=== PATIENT | male | born 1985 | race Caucasian/White ===

== ENCOUNTER 2019-08-08 00:23 | Emergency (ER) | payer SELFPAY ==
--- NOTE | 2019-08-08 00:42 | ER Document Report ---
ED Medical Screen (RME) - General Stated Complaint: PSYCH EVAL Time Seen by Provider: 08/08/19 00:40 Mode of Arrival: Ambulatory Information source: Patient Notes: Patient presents reporting that he is hearing voices. Patient states symptoms voices tell him to hurt himself although he is uncertain if these instructions are from people he hears or from himself. Patient does state he has a history of bipolar disorder and schizophrenia although he does not feel that these diagnoses are accurate. Patient states he has been hospitalized on inpatient basis for similar problems in the past. Patient states he has been off any medications for the past year. Patient also states that he is worried that he may have AIDS and cancer. I have greeted and performed a rapid initial assessment of this patient. A comprehensive ED assessment and evaluation of the patient, analysis of test results and completion of the medical decision making process will be conducted by additional ED providers. Physical Exam - Vital signs Vitals: Temp Pulse Resp BP Pulse Ox 98.3 F 100 20 128/78 H 99 08/08/19 00:35 08/08/19 00:35 08/08/19 00:35 08/08/19 00:35 08/08/19 00:35 - Psychological Associated symptoms: Auditory hallucinations, Paranoid Course - Vital Signs Vital signs: Temp Pulse Resp BP Pulse Ox 98.3 F 100 20 128/78 H 99 08/08/19 00:35 08/08/19 00:35 08/08/19 00:35 08/08/19 00:35 08/08/19 00:35
[2019-08-08 01:05] LABS: ABSOLUTE LYMPHOCYTES (AUTO) 1.7 10^3/uL (0.5-4.7); ABSOLUTE MONOCYTES (AUTO) 0.5 10^3/uL (0.1-1.4); ABSOLUTE NEUT (AUTO) 5.4 10^3/uL (1.7-8.2); BASOPHILS % (AUTO) 0.4 % (0-2); HEMOGLOBIN 14.7 g/dL (13.5-17.0); LYMPHOCYTES % (AUTO) 22.5 % (13-45); MEAN CORPUSCULAR HEMOGLOBIN 33.6 pg (27.0-33.4); MEAN CORPUSCULAR HGB CONC 35.1 g/dL (32.0-36.0); MEAN CORPUSCULAR VOLUME 96 fl (80-97); MONOCYTES % (AUTO) 6.2 % (3-13); PLATELET COUNT 292 10^3/uL (150-450); RED BLOOD COUNT 4.38 10^6/uL (4.35-5.55); RED CELL DISTRIBUTION WIDTH 13.4 % (11.5-14.0); SEGMENTED NEUTROPHILS % (AUTO) 70.9 % (42-78); TOTAL CELLS COUNTED % (AUTO) 100 %; WHITE BLOOD COUNT 7.7 10^3/uL (4.0-10.5)
[2019-08-08 01:18] LABS: ALBUMIN 4.7 g/dL (3.5-5.0); ALKALINE PHOSPHATASE 82 U/L (38-126); ANION GAP 11 (5-19); ASPARTATE AMINO TRANSFERASE 16 U/L (17-59); BILIRUBIN,TOTAL 0.9 mg/dL (0.2-1.3); BLOOD UREA NITROGEN 7 mg/dL (7-20); CALCIUM 9.9 mg/dL (8.4-10.2); CARBON DIOXIDE 24 mmol/L (22-30); CHLORIDE 102 mmol/L (98-107); GLUCOSE 98 mg/dL (75-110); TOTAL PROTEIN 7.9 g/dL (6.3-8.2)
[2019-08-08 01:21] LABS: ACETAMINOPHEN < 10 ug/mL (10-30); ALCOHOL < 10 mg/dL (NONE DETECTED); SALICYLATE < 1.0 mg/dL (2.0-20.0)
--- NOTE | 2019-08-08 01:36 | ER Document Report ---
ED Psych Disorder / Suicide - General Chief Complaint: Psych Problem Stated Complaint: PSYCH EVAL Time Seen by Provider: 08/08/19 00:40 Mode of Arrival: Ambulatory Notes: Patient is a 34-year-old male that comes emergency department for chief complaint of hearing voices that are telling him to hurt himself. He states that he is hearing voices and he is a difficult time differentiating if these voices are his own thoughts or if this is from the people that he hears. He states that he does have a history of schizophrenia which he calls into question. He states that he is out of his medications and he has not been on them for some time. He states he has been in psychiatric hospitalization previously. Patient is unsure of the medications that he was supposed to be on. Patient also states that he has been worried that he might have some sort of terrible disease or infection but he has been tested for this previously and they were negative. Patient states he is just frustrated and he feels like he needs to "get right". He states he came here walking because he is currently homeless. TRAVEL OUTSIDE OF THE [place] IN LAST 30 DAYS: No - Related Data Allergies/Adverse Reactions: bee venom protein (honey bee) Allergy (Verified 08/08/19 00:45) haloperidol [From Haldol] Allergy (Verified 08/08/19 00:41) Past Medical History - General Information source: Patient - Social History Smoking Status: Current Every Day Smoker Chew tobacco use (# tins/day): No Frequency of alcohol use: Heavy Drug Abuse: None Lives with: Alone Family History: Reviewed & Not Pertinent Patient has suicidal ideation: Yes - but does report voices telling him to harm himself Patient has homicidal ideation: Yes - states, "Not thoughts that are my own." Psychiatric Medical History: Reports: Hx Schizophrenia Surgical Hx: Negative - Immunizations Immunizations up to date: Yes Hx Diphtheria, Pertussis, Tetanus Vaccination: Yes Review of Systems - Review of Systems Constitutional: No symptoms reported EENT: No symptoms reported Cardiovascular: No symptoms reported Respiratory: No symptoms reported Gastrointestinal: No symptoms reported Genitourinary: No symptoms reported Male Genitourinary: No symptoms reported Musculoskeletal: No symptoms reported Skin: No symptoms reported Hematologic/Lymphatic: No symptoms reported Neurological/Psychological: See HPI Physical Exam - Vital signs Vitals: Temp Pulse Resp BP Pulse Ox 98.3 F 100 20 128/78 H 99 08/08/19 00:35 08/08/19 00:35 08/08/19 00:35 08/08/19 00:35 08/08/19 00:35 - Notes Notes: GENERAL: Alert, does not appear to be in distress HEAD: Normocephalic, atraumatic. EYES: Pupils equal, round, and reactive to light. Extraocular movements intact. ENT: Oral mucosa moist, tongue midline. Oropharynx unremarkable. Airway patent. LUNGS: Clear to auscultation bilaterally, no wheezes, rales, or rhonchi. No respiratory distress. HEART: Regular rate and rhythm. No murmur ABDOMEN: Soft, non-tender. Non-distended. Bowel sounds present in all 4 quadrants. GENITOURINARY: Deferred EXTREMITIES: Moves all 4 extremities spontaneously. No edema, normal radial and dorsalis pedis pulses bilaterally. No cyanosis. BACK: no cervical, thoracic, lumbar midline tenderness. No saddle anesthesia, normal distal neurovascular exam. Moves all extremities in full range of motion. NEUROLOGICAL: Alert and oriented x3. Normal speech. Cranial nerves II through XII grossly intact. PSYCH: Constantly frowning, hanging head down, makes poor eye contact, very slow speech, has difficulty engaging in conversation. Tangential conversation. SKIN: Warm, dry, normal turgor. No rashes or lesions noted. Course - Re-evaluation Re-evalutation: Patient does not appear to be in distress. Vital signs unremarkable. CBC, chemistry, urinalysis, drug screening, EKG unremarkable. Patient is voicing that he is having auditory hallucinations and reports he is either feeling suicidal or the voices are telling him to be suicidal. He is reportedly schizophrenic and off his medications, and checking the system this appears to be Risperdal and Vistaril, he was offered this and initially declined. He states he feels okay and he just wants to speak "to someone about my problems". Patient placed on IVC paperwork because of auditory loose Nations and suicidal ideations, this was signed by Dr. Villeda. Patient is medically cleared pending mental health team evaluation in the morning. Patient does state agreement with plan. - Vital Signs Vital signs: Temp Pulse Resp BP Pulse Ox 97.9 F 85 20 126/83 H 99 08/08/19 01:43 08/08/19 01:43 08/08/19 01:43 08/08/19 01:43 08/08/19 01:43 - Laboratory Result Diagrams: 08/08/19 00:54 08/08/19 00:54 Laboratory results interpreted by me: 08/08/19 08/08/19 08/08/19 00:54 00:54 01:35 MCH 33.6 H Sodium 136.8 L AST 16 L Urine Ketones TRACE H Urine Blood SMALL H Salicylates < 1.0 L Acetaminophen < 10 L - EKG Interpretation by Me Additional EKG results interpreted by me: EKG shows sinus rhythm at a rate of 81, normal axis, there is some J-point elevation in the anterior leads but no concerning ST elevations or T wave inversions. QTC of 409. Discharge - Discharge Clinical Impression: Auditory hallucinations, Suicidal ideations Schizophrenia Qualifiers: Schizophrenia type: unspecified Qualified Code(s): F20.9 - Schizophrenia, unspecified Condition: Stable Disposition: PSYCH HOSP/UNIT
[2019-08-08 01:58] LABS: APPEARANCE,URINE CLEAR; BILIRUBIN,URINE NEGATIVE (NEGATIVE); COLOR,URINE YELLOW; GLUCOSE, URINE NEGATIVE (NEGATIVE); KETONES,URINE TRACE mg/dL (NEGATIVE); LEUKOCYTE ESTERASE,URINE NEGATIVE (NEGATIVE); NITRITE,URINE NEGATIVE (NEGATIVE); PROTEIN,URINE NEGATIVE (NEGATIVE); URINE SPECIFIC GRAVITY 1.012; UROBILINOGEN,URINE NEGATIVE mg/dL (<2.0)
[2019-08-08 02:10] LABS: URINE AMPHETAMINES SCREEN NEGATIVE; URINE BARBITURATES SCREEN NEGATIVE; URINE BENZODIAZEPINES SCREEN NEGATIVE; URINE COCAINE SCREEN NEGATIVE; URINE MARIJUANA (THC) SCREEN NEGATIVE; URINE METHADONE SCREEN NEGATIVE; URINE PHENCYCLIDINE SCREEN NEGATIVE
[2019-08-08] MEDS ORDERED: RISPERIDONE 1 MG TABLET PO ONE (03:41)
[2019-08-08] MEDS ORDERED: HYDROXYZINE PAMOATE 50 MG CAPSULE PO ONE (03:41)
--- NOTE | 2019-08-08 07:59 | EKG REPORT ---
SEVERITY:- ABNORMAL ECG - SINUS RHYTHM BIATRIAL ABNORMALITIES LEFT VENTRICULAR HYPERTROPHY ST ELEV, PROBABLE NORMAL EARLY REPOL PATTERN : Confirmed by: Suzie Oh MD 08-Aug-2019 07:59:17
[2019-08-08] MEDS ORDERED: OLANZAPINE 2.5 MG TABLET PO ONE (13:45)
--- NOTE | 2019-08-08 13:48 | ER Document Report ---
Doctor's Note Notes: 08/08/19 13:46 Progress note: Patient reevaluated at this time today. He is in no acute distress. He states that he is feeling some better and ready for discharge. He denies any further suicidal or homicidal ideations. Denies any delusions. He states that he still hearing some voices but this is baseline for him. He reports the voices are not telling him to harm himself or anyone else or do any bad actions. Psychiatry is aware of this and wishes to proceed with IVC rescinded. Heart regular rate and rhythm, lungs clear to auscultation bilaterally. Patient has no medical complaints. His vital signs are within normal limits. He was previously medically cleared. He will be started on Zyprexa 2.5 mg p.o. twice daily per psychiatry recommendation. He was given outpatient list of psychiatric providers that he will follow-up with by psychiatry. I counseled him regarding the importance of outpatient follow-up and advised that he return here any ER immediately with any new, persistent or worsening symptoms. He verbalized understood and agreed. Discussed with Dr. Breen who agrees with plan of care.
[2019-08-08 14:18] VITALS: BP 106/76
--- NOTE | 2019-08-09 06:35 | PSYCHOLOGICAL NOTE ---
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 Patient was administered Risperdal 1MG and Vistaril 50MG at 0451 but initially would not take it. He admitted he was homeless. He reported the psychosis and SI increased the past 5 days and stated "I have a lot going on." With further questioning he stated "there are thoughts being put in my head, my thoughts are being read, and I feel like it's causing people to get hurt." He said he could not recall the last medication regimen he was on. He admitted to past use of Cannabis and occasionally Cocaine but being clean. He reported he drinks alcohol occasionally. He noted family MH history being father had Schizophrenia. He admitted to previous hospitalizations, said the last one was 1-2 years ago here in [place]. Patient denied current SI/HI, had fair eye contact, engaged and answered questions when addressed, thoughts seemed linear and organized, mood was euthymic with congruent affect and he did not appear to be responding to internal stimuli given appropriate interactions. He did become antsy and he told this clinician he wanted to have a cigarette. He was able to be redirected several times to wait so he could be discharged appropriately/given belongs and prescriptions. Diagnosis: Psychosis Suicidal Ideation Off prescribed medication for a year Homelessness Medication recommendations made by the psychiatric medication provider. Dr. Rajan MD., includes: Provide prescription for Zyprexa 2.5MG twice a day for psychosis/mood stabilization/impulse control/attention Impression/Plan: Patient is cleared from acute psychiatric services. Recommendation to rescind 24 Hour Petition for Evaluation. Patient denied current SI/HI, had fair eye contact, engaged and answered questions when addressed, thoughts seemed linear and organized, mood was euthymic with congruent affect and he did not appear to be responding to internal stimuli given appropriate interactions. He did become antsy and he told this clinician he wanted to have a cigarette. He was able to be redirected several times to wait so he could be discharged appropriately/given belongs and prescriptions. Provided patient with the outpatient MH resource list, highlighted both [facility] and [facility] for crisis/talk therapy/linkage, highlighted and documented walk in times for both [facility] and [facility] and listed medication/what it is meant to treat/[facility] being the cheapest place to purchase medication. Consulted with Dr. Hauser regarding the management and care of patient. ED Physician in agreement with recommendations.
== END 2019-08-08 14:18 | disposition home or self-care (01) ==
LOC: ER 00:23
DX: R45.851 Suicidal ideations (principal); F20.9 Schizophrenia, unspecified; F31.9 Bipolar disorder, unspecified
CPT/HCPCS: 93005; 99285; 36415; 80307 ×4; 85025; 80053; 81001; 93010; J3490

== ENCOUNTER 2019-08-09 12:44 | Emergency (ER) | payer SELFPAY ==
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
[2019-08-09 14:57] LABS: ABSOLUTE LYMPHOCYTES (AUTO) 1.8 10^3/uL (0.5-4.7); ABSOLUTE MONOCYTES (AUTO) 0.5 10^3/uL (0.1-1.4); ABSOLUTE NEUT (AUTO) 5.2 10^3/uL (1.7-8.2); BASOPHILS % (AUTO) 0.3 % (0-2); HEMATOCRIT 42.4 % (37.9-51.0); LYMPHOCYTES % (AUTO) 23.6 % (13-45); MEAN CORPUSCULAR HGB CONC 35.3 g/dL (32.0-36.0); MEAN CORPUSCULAR VOLUME 96 fl (80-97); MONOCYTES % (AUTO) 7.2 % (3-13); PLATELET COUNT 292 10^3/uL (150-450); RED CELL DISTRIBUTION WIDTH 13.7 % (11.5-14.0); SEGMENTED NEUTROPHILS % (AUTO) 68.9 % (42-78); TOTAL CELLS COUNTED % (AUTO) 100 %; WHITE BLOOD COUNT 7.5 10^3/uL (4.0-10.5)
[2019-08-09 15:16] LABS: ALBUMIN 4.9 g/dL (3.5-5.0); ALKALINE PHOSPHATASE 92 U/L (38-126); ANION GAP 12 (5-19); ASPARTATE AMINO TRANSFERASE 18 U/L (17-59); BILIRUBIN,DIRECT 0.2 mg/dL (0.0-0.4); BILIRUBIN,TOTAL 0.8 mg/dL (0.2-1.3); BLOOD UREA NITROGEN 8 mg/dL (7-20); CALCIUM 9.9 mg/dL (8.4-10.2); CARBON DIOXIDE 25 mmol/L (22-30); CHLORIDE 102 mmol/L (98-107); GLUCOSE 96 mg/dL (75-110); POTASSIUM 4.6 mmol/L (3.6-5.0); TOTAL PROTEIN 8.3 g/dL (6.3-8.2)
[2019-08-09 15:21] LABS: ACETAMINOPHEN < 10 ug/mL (10-30); ALCOHOL < 10 mg/dL (NONE DETECTED); SALICYLATE < 1.0 mg/dL (2.0-20.0)
[2019-08-09] MEDS ORDERED: OLANZAPINE 2.5 MG TABLET PO ONE (17:24)
--- NOTE | 2019-08-09 17:28 | ER Document Report ---
ED General - General Chief Complaint: Psych Problem Stated Complaint: PSYCH EVAL Time Seen by Provider: 08/09/19 14:09 Mode of Arrival: Ambulatory TRAVEL OUTSIDE OF THE [place] IN LAST 30 DAYS: No - HPI Notes: Mr. Rose is a 34-year-old male with a longstanding history of paranoid schizophrenia seen now for mental health evaluation. Patient is homeless. He was seen here yesterday and at that time was placed on IVC with paper subsequently being rescinded as mental health team felt that he was not suicidal or homicidal and they did not feel he was therefore dangerous to himself or others. Psychiatric health and safety consultant recommended treatment with Zyprexa 2.5 mg twice daily PRN. Patient returns today very unfocused and having difficulty expressing why he is come back at this time. With focus questioning he admits that he is having auditory hallucinations and that he is "afraid someone might get hurt" although he is not specifically issuing a threat to harm himself or anyone else. Patient admits he has used cocaine and marijuana in the past but his drug screen here yesterday was negative as was the remainder of his medical evaluation. - Related Data Allergies/Adverse Reactions: bee venom protein (honey bee) Allergy (Verified 08/09/19 14:08) haloperidol [From Haldol] Allergy (Verified 08/09/19 14:08) Home Medications: denies Past Medical History - General Information source: Patient - Social History Smoking Status: Former Smoker Chew tobacco use (# tins/day): No Frequency of alcohol use: Occasional Drug Abuse: None Family History: Reviewed & Not Pertinent Patient has suicidal ideation: No Patient has homicidal ideation: No Psychiatric Medical History: Reports: Hx Schizophrenia - Immunizations Immunizations up to date: Yes Hx Diphtheria, Pertussis, Tetanus Vaccination: Yes Review of Systems - Review of Systems -: Yes ROS unobtainable due to patient's medical condition Physical Exam - Vital signs Vitals: Temp Pulse Resp BP Pulse Ox 99.4 F 116 H 16 120/83 96 08/09/19 13:00 08/09/19 13:00 08/09/19 13:00 08/09/19 13:00 08/09/19 13:00 - Notes Notes: GENERAL: Disheveled appearance. Difficulty communicating with examiner. He appears to be responding to internal stimuli. SKIN: Good turgor no rashes. HEAD: Normocephalic atraumatic. EYES: PERRLA. EOMI. Conjunctivae and sclerae clear. EARS: CANALS AND TMS CLEAR. NOSE: CLEAR. MOUTH: Moist mucosa. Good dentition. No stridor or edema. No drooling. NECK: Supple. No masses or thyromegaly. No adenopathy. Carotids 2+ without bruits. No JVD. BACK: Symmetrical without tenderness. CHEST: Respirations unlabored. Breath sounds clear and symmetrical. HEART: Regular rhythm. No murmur gallop or rub. ABDOMEN: Soft nontender without masses, organomegaly or rebound. Bowel sounds normally active. No bruits. GENITALIA: Deferred. EXTREMITIES: No edema. No calf tenderness. Cap refill less than 1.5 seconds. Dorsalis pedis and posterior tibial pulses 3+ and symmetrical. NEUROLOGICAL: GCS 15. Alert and oriented x3. Normal gait. Fluent speech. Cranial nerves II through XII intact. Sensorimotor and cerebellar normal. Normal tone. PSYCHIATRIC: Rambling conversation with difficulty maintaining any focus. Appears to be responding to internal stimuli. Course - Re-evaluation Re-evalutation: 08/09/19 17:51 Patient is to be evaluated by psychiatry service. I am going to restart him on oral Zyprexa at this time. - Vital Signs Vital signs: Temp Pulse Resp BP Pulse Ox 99.4 F 116 H 16 120/83 96 08/09/19 13:00 08/09/19 13:00 08/09/19 13:00 08/09/19 13:00 08/09/19 13:00 - Laboratory Result Diagrams: 08/09/19 14:30 08/09/19 14:30 Laboratory results interpreted by me: 08/09/19 08/09/19 08/09/19 14:30 14:30 17:07 MCH 34.0 H Total Protein 8.3 H Urine Protein 30 H Urine Ketones TRACE H Urine Urobilinogen 4.0 H Salicylates < 1.0 L Acetaminophen < 10 L Discharge - Discharge Clinical Impression: Acute psychosis Disposition: PSYCH HOSP/UNIT
[2019-08-09 17:39] LABS: APPEARANCE,URINE SLIGHTLY-CLOUDY; BILIRUBIN,URINE NEGATIVE (NEGATIVE); GLUCOSE, URINE NEGATIVE (NEGATIVE); KETONES,URINE TRACE mg/dL (NEGATIVE); LEUKOCYTE ESTERASE,URINE NEGATIVE (NEGATIVE); NITRITE,URINE NEGATIVE (NEGATIVE); PROTEIN,URINE 30 mg/dL (NEGATIVE)
[2019-08-09 17:43] LABS: COLOR,URINE YELLOW
[2019-08-09 18:00] LABS: URINE AMPHETAMINES SCREEN NEGATIVE; URINE BARBITURATES SCREEN NEGATIVE; URINE BENZODIAZEPINES SCREEN NEGATIVE; URINE COCAINE SCREEN NEGATIVE; URINE MARIJUANA (THC) SCREEN NEGATIVE; URINE METHADONE SCREEN NEGATIVE; URINE PHENCYCLIDINE SCREEN NEGATIVE
--- NOTE | 2019-08-09 19:12 | PSYCHOLOGICAL NOTE ---
Psych Note - Psych Note Date seen by psych provider: 08/09/19 Time seen by psych provider: 18:15 Psych Note: Patient is a 34-year-old male who presents to ED via POV for "psychosis, unable to care for himself, homeless." Patient was last seen by [facility] on . Patient was resting in the bed when clinician entered the room. Clinician asked what happened since his discharge yesterday. Patient was unable to answer any changes psychologically or medically since his discharge on yesterday. Patient denies suicidal and homicidal ideations. Patient stated he experiences persecutory auditory hallucinations as described as voices telling him that he a nd others are "being set up." Patient denied command auditory hallucinations. Patient spoke of having an understanding of hearing voices and knowing the difference between right and wrong. Patient is experiencing homelessness. Patient would begin sentences such as "there is just so much.... things in my past.... let me ask you a legal question....are my lab results back- without finishing the question/statement and tap his finger on his lips as if he was thinking of an answer. Clinician discussed how outpatient mental health services can help heal from issues from the past. Patient was informed to consult an civil rights attorney with any legal questions. Patient was informed the medical Doc would be in later to discuss medical concerns. Clinician reminded patient of resource list which contained contact information for mobile crisis, [facility], and contact information for [facility]. Patient stated he had reached out to [facility]. Patient did not fill prescriptions that were provided yesterday at discharge. Clinician reminded patient that [facility] can assist with mental health services to process through issues from the past and medication management. Per verbal nurse report, patient requested discharge. Patient is alert and oriented to person, place, time and circumstance. Mood is normal with congruent affect. Patient denies suicidal and homicidal ideations. Patient reports experiencing persecutory auditory hallucinations as described as voices telling him that he and others are "being set up." Patient denied command auditory hallucinations. Conversational speech is within normal rate, tone, and prosody. Intellectual ability appears to be within average range. Attention and concentration are good. Insight, judgment and impulse control are currently poor. Impression/Plan: Patient is cleared from acute psychiatric services. Patient denies suicidal and homicidal ideations. There is no observed behavior that suggests patient is responding to internal stimuli. Patient engaged in organized, rational, linear thought processes and was able to express needs and wants in a logical manner as evidenced by asking appropriate questions in an appropriate manner. Patient stated he experiences auditory hallucinations, however denies command auditory hallucinations. The hallucinations patient experiences about he and others being set up are not suggestive of dangerousness to self or others. Patient presented today with same etiology as yesterday and was unable to give specific example of how his circumstance has changed. Patient was encouraged to reach out to mobile crisis at discharge. Dr. Hauser was consulted on the care and management of this patient; attending physician is in agreement with recommendations and disposition.
--- NOTE | 2019-08-09 19:37 | EKG REPORT ---
SEVERITY:- ABNORMAL ECG - SINUS RHYTHM LEFT ATRIAL ABNORMALITY LEFT VENTRICULAR HYPERTROPHY ST ELEV, PROBABLE NORMAL EARLY REPOL PATTERN : Confirmed by: Suzie Oh MD 09-Aug-2019 19:36:07
[2019-08-09 21:21] VITALS: BP 118/78
== END 2019-08-09 19:50 | disposition home or self-care (01) ==
LOC: ER 12:44
DX: F20.0 Paranoid schizophrenia (principal); Z59.0 Homelessness; Z91.030 Bee allergy status; Z88.8 Allergy status to other drugs, medicaments and biological substances; Z87.891 Personal history of nicotine dependence
CPT/HCPCS: 93005; 99285; 36415; 80307 ×4; 85025; 80053; 81001; 93010; J3490

== ENCOUNTER 2019-08-09 22:28 | Emergency (ER) | payer SELFPAY ==
[2019-08-09 22:35] VITALS: BP 136/80
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
--- NOTE | 2019-08-10 04:41 | ER Document Report ---
Entered by JUANY CRUM SCRIBE 08/10/19 0424 Acting as scribe for:KATHLEEN CHAVARRIA IV, MD ED Psych Disorder / Suicide - General Mode of Arrival: Ambulatory Information source: Patient TRAVEL OUTSIDE OF THE [place] IN LAST 30 DAYS: No <KATHLEEN CHAVARRIA IV - Last Filed: 08/10/19 04:54> <MARYANN MATA - Last Filed: 08/10/19 12:36> <ADARSH CASTILLO - Last Filed: 08/10/19 13:07> - General Chief Complaint: Psych Problem Stated Complaint: BEHAVORIAL Time Seen by Provider: 08/09/19 22:55 Primary Care Provider: [facility] [Outside] - Follow up as needed Notes: This 34-year-old male patient with schizophrenia presents to the emergency department today with complaints of auditory hallucinations. Patient has been seen twice in the last day for similar complaints. Patient states that he thinks he "has an implant in my nose or something because people can hear my thoughts". Patient states he hears voices that talk about "the bad things he has done in the past". Patient states he did not fill his prescriptions for the medications he was prescribed earlier, stating he has no reason why he did not fill them. Patient denies homicidal or suicidal ideation. Patient is homeless. (KATHLEEN CHAVARRIA IV) - Related Data Allergies/Adverse Reactions: bee venom protein (honey bee) Allergy (Verified 08/09/19 14:08) haloperidol [From Haldol] Allergy (Verified 08/09/19 14:08) Past Medical History - General Information source: Patient - Social History Smoking Status: Current Every Day Smoker Cigarette use (# per day): Yes Frequency of alcohol use: None Drug Abuse: None Lives with: Family Family History: Reviewed & Not Pertinent Patient has suicidal ideation: No Patient has homicidal ideation: No Psychiatric Medical History: Reports: Hx Bipolar Disorder, Hx Schizophrenia Surgical Hx: Negative - Immunizations Immunizations up to date: Yes Hx Diphtheria, Pertussis, Tetanus Vaccination: Yes <KATHLEEN CHAVARRIA IV - Last Filed: 08/10/19 04:54> Review of Systems - Review of Systems Constitutional: No symptoms reported EENT: No symptoms reported Cardiovascular: No symptoms reported Respiratory: No symptoms reported Gastrointestinal: No symptoms reported Genitourinary: No symptoms reported Male Genitourinary: No symptoms reported Musculoskeletal: No symptoms reported Skin: No symptoms reported Hematologic/Lymphatic: No symptoms reported Neurological/Psychological: See HPI, Hallucinations. denies: Homicidal ideation, Suicidal ideation -: Yes All other systems reviewed and negative <KATHLEEN CHAVARRIA IV - Last Filed: 08/10/19 04:54> Physical Exam <KATHLEEN CHAVARRIA IV - Last Filed: 08/10/19 04:54> - Vital signs Vitals: Temp Pulse Resp BP Pulse Ox 98.9 F 114 H 16 136/80 H 97 08/09/19 22:34 08/09/19 22:34 08/09/19 22:34 08/09/19 22:34 08/09/19 22:34 - Notes Notes: Physical Exam: General: Alert, appears well. HEENT: Normocephalic. Atraumatic. PERRLA. Extraocular movements intact. Oropharynx clear. Neck: Supple. Respiratory: No respiratory distress. Abdominal: Normal Inspection. No distension. Extremities: Moves all four extremities. Neurological: Normal cognition. AAOx4. Normal speech. Psychological: Denies homicidal or suicidal ideation. Endorses auditory hallucinations. Skin: Warm. Dry. Normal color. (KATHLEEN CHAVARRIA IV) Course - Laboratory Result Diagrams: 08/10/19 05:25 <MARYANN MTAA - Last Filed: 08/10/19 12:36> - Laboratory Result Diagrams: 08/10/19 05:25 <ADARSH CASTILLO - Last Filed: 08/10/19 13:07> - Vital Signs Vital signs: Temp Pulse Resp BP Pulse Ox 98.9 F 114 H 16 136/80 H 97 08/09/19 22:34 08/09/19 22:34 08/09/19 22:34 08/09/19 22:34 08/09/19 22:34 - Laboratory Laboratory results interpreted by me: 08/10/19 08/10/19 05:25 06:18 Urine Blood SMALL H Salicylates < 1.0 L Acetaminophen < 10 L Discharge <DEONKATHLEEN IV - Last Filed: 08/10/19 04:54> <MARYANN MATA - Last Filed: 08/10/19 12:36> <ADARSH CASTILLO - Last Filed: 08/10/19 13:07> - Discharge Clinical Impression: Auditory hallucinations Condition: Stable Disposition: HOME, SELF-CARE Additional Instructions: You have been evaluated by both medical and behavioral health teams for auditory hallucinations and have been deemed appropriate for discharge. While you were in the Emergency Department you received the following services: medical, psychiatric/psychological, pharmaceutical, dietary, nursing, health safety specialist and security, environmental in addition to psychoeducation and resources/referrals. You are encouraged to fill your prescription that was provided during your previous [facility] ED visit on 08/08/2019. You are also recommended to follow-up with the local [facility] human services here in [place]. You can walk-in anytime Tuesday through Tuesday from 8 AM to 4:30 PM. You have also been provided the resource list to assist with socioeconomic stressors to include the homeless residential, food roach, soup kitchen etc. AT ANY TIME, IF YOUR SYMPTOMS CHANGE SIGNIFICANTLY OR WORSEN OR YOU DEVELOP NEW SYMPTOMS, RETURN TO THE EMERGENCY DEPARTMENT IMMEDIATELY FOR RE-EVALUATION. Referrals: [facility] [Outside] - Follow up as needed I personally performed the services described in the documentation, reviewed and edited the documentation which was dictated to the scribe in my presence, and it accurately records my words and actions.
[2019-08-10 06:08] LABS: ALBUMIN 4.6 g/dL (3.5-5.0); ALKALINE PHOSPHATASE 85 U/L (38-126); ANION GAP 13 (5-19); ASPARTATE AMINO TRANSFERASE 17 U/L (17-59); BILIRUBIN,DIRECT 0.2 mg/dL (0.0-0.4); BILIRUBIN,TOTAL 0.7 mg/dL (0.2-1.3); BLOOD UREA NITROGEN 14 mg/dL (7-20); CARBON DIOXIDE 25 mmol/L (22-30); CHLORIDE 103 mmol/L (98-107); GLUCOSE 103 mg/dL (75-110); POTASSIUM 4.1 mmol/L (3.6-5.0); TOTAL PROTEIN 7.8 g/dL (6.3-8.2)
[2019-08-10 06:11] LABS: ACETAMINOPHEN < 10 ug/mL (10-30); ALCOHOL < 10 mg/dL (NONE DETECTED); SALICYLATE < 1.0 mg/dL (2.0-20.0)
[2019-08-10 06:37] LABS: APPEARANCE,URINE CLEAR; BILIRUBIN,URINE NEGATIVE (NEGATIVE); COLOR,URINE STRAW; GLUCOSE, URINE NEGATIVE (NEGATIVE); KETONES,URINE NEGATIVE (NEGATIVE); LEUKOCYTE ESTERASE,URINE NEGATIVE (NEGATIVE); NITRITE,URINE NEGATIVE (NEGATIVE); PROTEIN,URINE NEGATIVE (NEGATIVE); URINE SPECIFIC GRAVITY 1.004; UROBILINOGEN,URINE NEGATIVE mg/dL (<2.0)
[2019-08-10 06:48] LABS: URINE AMPHETAMINES SCREEN NEGATIVE; URINE BARBITURATES SCREEN NEGATIVE; URINE BENZODIAZEPINES SCREEN NEGATIVE; URINE COCAINE SCREEN NEGATIVE; URINE MARIJUANA (THC) SCREEN NEGATIVE; URINE METHADONE SCREEN NEGATIVE; URINE PHENCYCLIDINE SCREEN NEGATIVE
--- NOTE | 2019-08-10 11:29 | PSYCHOLOGICAL NOTE ---
Psych Note - Psych Note Date seen by psych provider: 08/10/19 Time seen by psych provider: 09:25 Psych Note: Reason For Consult:psychosis Consent Permissions:not provided Patient reports he arrived to [facility] ED via his bicycle because he has been hearing voices. He states he hears voices "the majority of times" then changes his response and stated "it is occasionally on and off." Patient is asked if he recognizes the voices in which he replies "it varies." He was able to further explain that he "does not always recognize the voices but sometimes I do." He states that they are "mostly male but occasionally female." He does not know the number of voices he has because it "varies" and reports that he "sometimes understand what they say but not all the time." Patient reports that when he understand the auditory voices it "varies" in regards to subjective; normally it is about "me riding my bike, walking or working." He denies that these are command hallucinations, rather the voices comment on what he is doing at the time. Patient reports that the voices have been occurring for a little over a year. He reports that they did stop for "a good while;" however, restarted approximately last week. He reports he was on medications he received from [facility] in [place], [place] when he was free of hallucinations. He denies following up with outpatient services locally stating that he has not had an outpatient provider "in a year or more." Patient reports that "my own thoughts become uncontrollable." Patient states he is never hurt anyone and denies any thoughts of wanting to hurt himself or others. Patient denies any current substance abuse stating that he last used cocaine 5 to 6 years ago. Patient reports he is currently homeless and recently lost his employment "a week or so ago." When asked what help looks like to him, he reports "I guess which you have been doing for me..." he clarified he wants a referral for outpatient mental health and medications. Patient is alert and orientated to person, place, time and circumstance. Mood is euthymic with congruent affect as evidenced by appropriately engaging with clinician. Patient denies suicidal and homicidal ideation. Delusions are absent. Clinician notes patient reports auditory hallucinations; he is not demonstrating any behaviours of responding to internal stimuli ie Eye contact is well-maintained, conversational speech is within normal rate, tone and prosody, and thoughts processes are organized, linear and logical. Intellectual abilities appear to be within the average range. Attention and concentration are good. Insight, judgment, impulse control are fair. Chart review conducted: Patient was evaluated 08/08/2019 by the behavioral health team and received a prescription for Zyprexa 2.5mg, twice a day. Patient presented to the ED early that morning via walk-in for history of Schizophrenia/Bipolar, having psychosis with increased suicidal ideation and been off medication for a year. Patient denied current SI/HI, had fair eye contact, engaged and answered questions when addressed, thoughts seemed linear and organized, mood was euthymic with congruent affect and he did not appear to be responding to internal stimuli given appropriate interactions. He did become antsy and he told this clinician he wanted to have a cigarette. He was able to be redirected several times to wait so he could be discharged appropriately/given belongs and prescriptions. Provided patient with the outpatient MH resource list, highlighted both [facility] and [facility] for crisis/talk therapy/linkage, highlighted and documented walk in times for both [facility] and [facility] and listed medication/what it is meant to treat/[facility] being the cheapest place to purchase medication. Patient was seen again on 08/09/2019 by the behavioral health team after presenting to ED for "psychosis, unable to care for himself, homeless." Patient denied suicidal and homicidal ideation. There was no observed behavior that suggests patient is responding to internal stimuli. Patient engaged in organized, rational, linear thought processes and was able to express needs and wants in a logical manner as evidenced by asking appropriate questions in an appropriate manner. Patient stated he experiences auditory hallucinations, however denied command auditory hallucinations. Impression\\plan: Patient is cleared from acute psychiatric services. Patient has been evaluated for the last 3 consecutive days for the patient's reports psychosis. He was provided prescriptions the first visit (08/08/2019) but has not filled them. He continues to present with behavior which is congruent with an intact reality based presentation i.e. organized, rational and linear thought processes, maintains good eye contact, and has normal conversational speech. Patient reports auditory hallucinations however has not demonstrated any indications of responding to internal stimuli during any of his [facility] ED visits over the last 3 days. Patient is very vague when asked for specifics in regards to his auditory hallucinations, frequently stating that it "varies" and states they manifest in multiple different ways. There is a noted significant difference in the patient's presentation and his self reported symptoms when he first arrives to [facility] in the evening to when he is evaluated the next morning by the behavioral health team. The patient is homeless and there is concern the patient has been using the ED for secondary gain as he has not attempted to follow recommendations for connecting with outpatient services or filling the prescription he received. Patient is recommenced to follow up with the local [facility] and to fill his prescription. Patient can walk into [facility] to establish services Tuesday thru Tuesday [phone]. The patient has been provided a local resource list for socioeconomic assistance ie homeless shelters, food roach, soup kitchen, etc. Dr. Hauser was consulted to care management of this patient; attending physicians in agreement with recommendations and disposition.
--- NOTE | 2019-08-10 13:07 | ER Document Report ---
Doctor's Note Notes: 08/10/19 13:05 Progress note: Reevaluation today at this time status post mental health evaluation, the patient is sleeping in the room. He is easily arousable. States he is gotten the rest that he has been lacking. He has clear of mind and thought. Speaking and answering questions appropriately. He is in no acute dis tress. He has no medical complaints. Denies any further hallucinations, delusions, suicidal ideations or homicidal ideations. Psychiatry has cleared him for discharge. He has previously been medically cleared. He was stable and appropriate for discharge and outpatient follow-up. His vital signs are within normal limits with the exception of the last recorded heart rate of 114. Manual pulse recorded by me in the room was at 74 bpm resting. Heart regular rate and rhythm, lungs clear to auscultation bilaterally. Patient was encouraged to fill his outpatient medications and follow-up as discussed. He verbalized understood and agreed.
== END 2019-08-10 15:11 | disposition home or self-care (01) ==
LOC: ER 22:28
DX: F20.9 Schizophrenia, unspecified (principal); F17.210 Nicotine dependence, cigarettes, uncomplicated; Z59.0 Homelessness; Z91.030 Bee allergy status; Z88.8 Allergy status to other drugs, medicaments and biological substances
CPT/HCPCS: 36415; 80053; 80307; 81001; 99285

== ENCOUNTER 2019-08-10 16:52 | Emergency (ER) | payer SELFPAY | END 2019-08-10 17:35 | disposition left against medical advice (07) | LOC: ER 16:52 | DX: Z53.21 Procedure and treatment not carried out due to patient leaving prior to being seen by health care provider (principal) ==